=== PATIENT | female | born 1990 ===

== ENCOUNTER 2018-10-27 07:58 | Inpatient (IN) | payer OTHER ==
[2018-10-27] MEDS ORDERED: Buffered Lidocaine 1% SYRIN* 1 ML/SYRINGE INTRADERM ONE (08:33)
[2018-10-27] MEDS ORDERED: Lactated Ringers 1000 ML Bag* 1,000 ML IV ONE (08:33)
[2018-10-27] MEDS ORDERED: Penicillin G Potassium IV* 2,500,000 UNITS in NS 0.9% 100 ML* 100 ML IVPB SCH (09:00)
[2018-10-27] MEDS ORDERED: Lactated Ringers 1000 ML Bag* 1,000 ML IV SCH (09:00)
[2018-10-27 09:04] LABS: ABS Basophils 0 10^3/ul (0-0.2); ABS Eosinophils 0.1 10^3/ul (0-0.6); ABS Lymphocytes 1.9 10^3/ul (1.0-4.8); ABS Monocytes 0.7 10^3/ul (0-0.8); ABS Neutrophils 7.5 10^3/ul (1.5-7.7); ABS Nucleated RBC 0 10^3/ul; Eosinophil % 0.7 %; Hematocrit 36 % (33-41); Hemoglobin 11.7 g/dL (12.0-16.0); Mean Corpuscular HGB Conc 33 g/dL (31-36); Mean Corpuscular Hemoglobin 25 pg (27-31); Mean Corpuscular Volume 75 fL (80-97); Mean Platelet Volume 10.4 fL (7.4-10.4); Nucleated Red Blood Cells % 0; Platelet Count 135 10^3/uL (150-450); Red Blood Count 4.79 10^6 /uL (3.70-4.87); Red Cell Distribution Width 15 % (10.5-15); White Blood Count 10.2 10^3/uL (3.5-10.8)
[2018-10-27] MEDS ORDERED: Penicillin G Potassium IV* 5,000,000 UNITS in NS 0.9% 100 ML* 100 ML IVPB ONE (09:15)
[2018-10-27] MEDS ORDERED: Misoprostol TAB* 100 MCG PO ONE ×3 (09:20→18:30)
--- NOTE | 2018-10-27 09:28 | HP ---
General Information - Reason for Visit induction of labor - General Information Maternal Age: 28 Grav: 1 Para: 0 SAB: 0 IEA: 0 Estimated Due Date: 10/31/18 Determined By: LMP Maternal Blood Type and Rh: A Positive - Results this Serology/RPR Result: Non-Reactive Rubella Result: Immune HBsAg Result: Negative HIV Result: Negative GBS Culture Result: Positive Past Medical History Delivery History: See Records Pertinent Past Medical History: See Records Pertinent Past Surgical History: See Records Pertinent Family History: See Records - Antepartal Records Antepartal Records: Reviewed, Complicated by: - marginal prevbia now low lying placenta Review of Systems Constitutional: Comfortable CV Complaint: No Respiratory: Shortness of Breath: No Gastrointestinal: No Nausea/Vomiting Genitourinary: No Dysuria, No Bleeding, No Leaking Fluid Musculoskeletal: No Complaint Neurological: No Headache Movement: Normal Exam Allergies/Adverse Reactions: Allergies No Known Allergies Allergy (Verified 10/27/18 08:49) T: 97.7 BP 131/94 P : 97 RR: 18 Lab Values - Entire Visit: Laboratory Tests 10/27/18 10/27/18 08:40 08:40 WBC 10.2 RBC 4.79 Hgb 11.7 L Hct 36 MCV 75 L MCH 25 L MCHC 33 RDW 15 Plt Count 135 L MPV 10.4 Neut % (Auto) 73.6 Lymph % (Auto) 19.0 [place] % (Auto) 6.4 Eos % (Auto) 0.7 Baso % (Auto) 0.3 Absolute Neuts (auto) 7.5 Absolute Lymphs (auto) 1.9 Absolute Monos (auto) 0.7 Absolute Eos (auto) 0.1 Absolute Basos (auto) 0 Absolute Nucleated RBC 0 Nucleated RBC % 0 Blood Type A Positive - Measurements Height: 5 ft 3 in Weight: 188 lb 11.451 oz Weight in lbs: 188.091307 Body Mass Index (BMI): 33.4 Pre- Weight: 160 lb 14.999 oz Weight Gained This : 27.778 lbs and 0.004 ozs - Exam Breast: Breast Exam Deferred CVA: No CVA Tenderness Extremities: No Edema Heart: Normal Rhythm/Heart Sounds HEENT: No Significant Findings Lungs: Clear Bilaterally Rectal: Rectal Exam Deferred Reflexes: DTR 2+ Thyroid: No Thyromegaly - Abdominal Exam Abdomen Exam: Non-Tender - Ultrasound/Biophysical Profile Ultrasound Status: Not Done Targeted Exam Findings Cervical Exam: Closed Effacement: Thick Station: High Presenting Part: Vertex Membrane Status: Intact EFM Findings - External Monitor Findings Baseline Heart Rate: 140 External Monitor Findings: Accelerations Present, No Pattern of Variable or Late Decelerations, Variability Moderate Contractions: None Assessment/Plan - Assessment Pt 28 yo G1 at 39 weeks with low lying placenta less than 1 cm from OS. Pt desires a trial of labor - Obstetrical Risk Factors Obstetrical Risk Factors: GBS Positive - Plan Plan: Admit - Anticipate Vaginal Delivery - Pt is aware of possible risk of bleeding given low lyig placenta and need for emergent delivery. Pt accepts this risk and deisires to have a trial of labor for vaginal delivery. Will begin cervical ripening with oral cytotec.
[2018-10-27] MEDS ORDERED: Dinoprostone* 10 MG VAG.SUPP VAGINAL ONE (22:45)
[2018-10-28] MEDS ORDERED: ceFOXitin 2 GM IVPREMIX* 2 GM/50 ML BAG IVPB ONE (15:00)
[2018-10-28] MEDS ORDERED: ceFOXitin 2 GM IVPREMIX* 2 GM/50 ML BAG ONE (15:07)
[2018-10-28] MEDS ORDERED: Sodium Citrate/Citric Acid* 15 ML UDC ONE (15:07)
[2018-10-28] MEDS ORDERED: Famotidine IV* 10 MG/ML 2 ML (20 mg) ONE (15:08)
--- NOTE | 2018-10-28 15:15 | PN ---
Progress Note - Progress Note Date of Service: 10/28/18 Note: called for pt with cervidil for bleeding . approximately 200 cc blood and clot seen ve vertex still high cervix 2 cm. fhr 130 with moderate variabilty and accelerations d/w pt and delivery. Discussed significant risk of serious hemorrhage with complications given the current bleeding if we continue to induce or await natural labor. risks of discussed including but not limited to bleeding and transfusion/ injury to bowel bladder or uterus/ dvt/ infection and need for prophylactic antibiotics. questions answered. Jomar Ortiz MD
[2018-10-28] MEDS ORDERED: Dexamethasone IV* 4 MG/ML 1 ML (4 MG) ONE (15:17)
[2018-10-28] MEDS ORDERED: Morphine PF AMP (0.5MG/ML)* 5 MG/10 ML AMP ONE (15:17)
[2018-10-28] MEDS ORDERED: Ondansetron INJ* 2 MG/ML VIAL ONE (15:17)
[2018-10-28] MEDS ORDERED: OXYTOCIN* 10 UNITS/ML 1 ML VIAL ONE (15:17)
[2018-10-28] MEDS ORDERED: Phenylephrine 40 MCG/ML SYRINGE ONE (15:18)
[2018-10-28] MEDS ORDERED: HYDROmorphone INJ1* 1 MG/ML SYRINGE IV PRN (16:03)
[2018-10-28] MEDS ORDERED: Ondansetron INJ* 2 MG/ML VIAL IV PRN (16:03)
[2018-10-28] MEDS ORDERED: oxyCODONE/Acetamin 5/325 MG* TAB PO PRN ×2 (16:03)
[2018-10-28] MEDS ORDERED: Naloxone* 0.4 MG/ML 1 ML VIAL IV PRN ×2 (16:03)
[2018-10-28] MEDS ORDERED: Nalbuphine* 10 MG/ML 1 ML VIAL IV PRN (16:03)
[2018-10-28] MEDS ORDERED: fentaNYL* 50 MCG/ML 2 ML VIAL (100 MCG VIAL) IV PRN (16:03)
[2018-10-28] MEDS ORDERED: DiMENhydriNATE IV* 50 MG/ML VIAL IV PUSH PRN (16:03)
[2018-10-28] MEDS ORDERED: Tranexamic Acid 1,000 MG/10 ML 1,000 MG in NS 0.9% 50 ML* 50 ML IV ONE (16:31)
[2018-10-28] MEDS ORDERED: Acetaminophen TAB* 325 MG PO PRN (16:32)
[2018-10-28] MEDS ORDERED: Glycerin ADULT SUPP PR PRN (16:32)
[2018-10-28] MEDS ORDERED: Dibucaine 1% 28.35 GM TUBE PR PRN (16:32)
[2018-10-28] MEDS ORDERED: Witch Hazel PAD* JAR TOPICAL PRN (16:32)
[2018-10-28] MEDS ORDERED: Oxytocin in LR* 20 UNITS/1,000 ML BAG IVPB ONE (16:38)
[2018-10-28] MEDS ORDERED: Lactated Ringers 1000 ML Bag* 1,000 ML IV SCH (17:00)
[2018-10-28] MEDS ORDERED: Oxytocin in LR* 20 UNITS/1,000 ML BAG IVPB SCH (17:00)
[2018-10-28] MEDS ORDERED: Tranexamic Acid 1,000 MG in NS 0.9% 50 ML IV ONE (17:00)
[2018-10-28] MEDS ORDERED: Misoprostol TAB* 200 MCG PR ONE (17:03)
[2018-10-28] MEDS: Simethicone TAB* 80 MG TAB.CHEW PO SCH (21:53)
[2018-10-28] MEDS: Docusate CAP* 100 MG PO SCH (21:53)
--- NOTE | 2018-10-28 21:56 | PTEDU ---
Patient Name: HILTON WELLS JESSICAANGELLA VALDEZMIGDALIA selected video: Follow Me Mum: [employer] [facility] [employer] to view on 2018 at 9:55:28 PM from [id number]
[2018-10-28] MEDS: Oxytocin 20 UNITS in LR* ** ENTER RATE IVPB SCH (22:11)
--- NOTE | 2018-10-29 00:22 | OP ---
OPERATIVE REPORT: DATE OF OPERATION: 10/28/18 - [id number] DATE OF : 89 SURGEON: Pablo Ortiz M.D. HEAT TREATING OPERATOR: Yaneth Cha CNM ANESTHESIOLOGIST: Juice Orellana MD ANESTHESIA: Spinal. PRE-OP DIAGNOSES: Low lying placenta and maternal hemorrhage. POST-OP DIAGNOSIS: Low lying placenta and maternal hemorrhage plus lower uterine segment bleeding and endometriosis. OPERATIVE PROCEDURE: Low transverse section. COMPLICATIONS: Include bleeding lower uterine segment. FINDINGS: This is a 28-year-old, 1, para 0, with a low lying placenta less than 1 cm away from the cervical os, who was brought in at 39 weeks for induction of labor with having been given informed consent regarding the high risk of needing a and labor because of hemorrhage. She was given Cytotec and then Cervidil and she got in to labor, began to have heavy bleeding. She passed approximately 200 cc in the labor bed and at that point, the decision was made to proceed with . At the time of , she had a viable male, Apgars 8 and 9. The weight was 7 pounds 8 ounces. She had a lower uterine segment bleeding from where the placenta was attached, which was suture ligated and her back side of her uterus contained evidence of significant endometriosis along with somewhat involuted endometrioma on the right ovary and noted scarring and inflammatory decidual process. DESCRIPTION OF PROCEDURE: The patient identified, procedure identified as a low - transverse section. The patient was taken to the operating room, prepped and draped in the usual fashion under spinal anesthesia. A Pfannenstiel incision made in the abdomen and carried down through fat, fascia, and peritoneum. A transverse incision was made in the lower uterine segment and extended laterally using blunt dissection. The above was delivered through the incision with ease. The cord was doubly clamped and cut. The infant was handed to the awaiting manager mining. Cord blood was obtained. Placenta delivered spontaneously. The uterus was wiped out with a wet lap sponge. The uterine cavity was inspected and found to be bleeding from a raw area along the lower uterine segment on the back wall. This was suture ligated using 0 Polysorb [id number] sutures until hemostasis was improved and 2 [id number] sutures were placed. There was still some bleeding, but hemorrhage seemed fairly well controlled and the lower uterine segment was closed using 0 Polysorb in a running fashion. Second layer was used to imbricate the first layer. Good hemostasis was verified. Copious irrigation was utilized and suctioned out. The uterus was placed back in the abdominal cavity. The back side of the uterus had been inspected to make sure there was no stitches coming through or any bleeding to the back side of the uterus. Again, the intraperitoneal space was found to be hemostatic and uterine tone seemed appropriate and peritoneum was then closed using 3-0 Polysorb in a running fashion. Hemostasis achieved in the subrectus layers. The fascia was closed using 0 Polysorb in a running fashion. Hemostasis was achieved in the subcu. The skin was closed with 4-0 Monocryl in a subcuticular fashion. Mastisol and Steri-Strips were applied, and all sponge and instrument counts were correct. The patient returned to the recovery room in stable condition. [id number]/CPS #: [id number] MTDD
[2018-10-29] MEDS: Ibuprofen TAB* 600 MG PO SCH ×2 (00:47→05:10)
[2018-10-29] MEDS ORDERED: oxyCODONE/Acetamin 5/325 MG* TAB PO PRN (07:30)
[2018-10-29] MEDS: Oxytocin 20 UNITS in LR* ** ENTER RATE IVPB SCH (08:24)
[2018-10-29] MEDS: Simethicone TAB* 80 MG TAB.CHEW PO SCH ×5 (08:36→21:40)
[2018-10-29] MEDS: oxyCODONE/Acetamin 5/325 MG* TAB PO PRN ×2 (08:36→19:31)
[2018-10-29] MEDS: Docusate CAP* 100 MG PO SCH ×3 (08:36→21:40)
[2018-10-29 09:46] LABS: ABS Basophils 0.1 10^3/ul (0-0.2); ABS Eosinophils 0 10^3/ul (0-0.6); ABS Lymphocytes 1.6 10^3/ul (1.0-4.8); ABS Monocytes 0.9 10^3/ul (0-0.8); ABS Neutrophils 10.7 10^3/ul (1.5-7.7); ABS Nucleated RBC 0 10^3/ul; Eosinophil % 0.2 %; Hematocrit 31 % (33-41); Lymphocyte % 12.1 %; Mean Corpuscular HGB Conc 33 g/dL (31-36); Mean Corpuscular Hemoglobin 24 pg (27-31); Mean Corpuscular Volume 75 fL (80-97); Mean Platelet Volume 10.3 fL (7.4-10.4); Nucleated Red Blood Cells % 0; Platelet Count 129 10^3/uL (150-450); Red Blood Count 4.09 10^6 /uL (3.70-4.87); Red Cell Distribution Width 15 % (10.5-15); White Blood Count 13.3 10^3/uL (3.5-10.8)
[2018-10-29] MEDS: Ibuprofen TAB* 600 MG PO PRN ×2 (12:56→19:32)
[2018-10-29] MEDS: Ferrous Gluconate TAB* 324 MG TAB PO SCH ×2 (13:20→19:59)
[2018-10-29] MEDS ORDERED: Zolpidem TAB* 5 MG PO PRN (21:00)
[2018-10-30] MEDS: oxyCODONE/Acetamin 5/325 MG* TAB PO PRN ×2 (00:19→09:04)
[2018-10-30] MEDS: Ibuprofen TAB* 600 MG PO PRN ×3 (04:15→20:12)
[2018-10-30 07:02] LABS: Hematocrit 28 % (33-41); Hemoglobin 9.1 g/dL (12.0-16.0); Mean Corpuscular HGB Conc 33 g/dL (31-36); Mean Corpuscular Hemoglobin 25 pg (27-31); Mean Corpuscular Volume 75 fL (80-97); Mean Platelet Volume 11.5 fL (7.4-10.4); Platelet Count 118 10^3/uL (150-450); Red Blood Count 3.72 10^6 /uL (3.70-4.87); Red Cell Distribution Width 15 % (10.5-15); White Blood Count 8.7 10^3/uL (3.5-10.8)
[2018-10-30] MEDS: Simethicone TAB* 80 MG TAB.CHEW PO SCH ×4 (09:03→20:12)
[2018-10-30] MEDS: Ferrous Gluconate TAB* 324 MG TAB PO SCH ×2 (09:04→20:12)
[2018-10-30] MEDS: Docusate CAP* 100 MG PO SCH ×3 (09:05→20:12)
[2018-10-30 20:29] VITALS: BP 134/74
[2018-10-31] MEDS: Simethicone TAB* 80 MG TAB.CHEW PO SCH (09:50)
[2018-10-31] MEDS: Docusate CAP* 100 MG PO SCH (09:50)
[2018-10-31] MEDS: Ferrous Gluconate TAB* 324 MG TAB PO SCH (09:50)
[2018-10-31] MEDS: Ibuprofen TAB* 600 MG PO PRN (09:50)
== END 2018-10-31 13:27 | disposition home or self-care (01) | DRG 540 ==
LOC: MCHOBOUT 07:58 → MCHOB 09:17
PROVIDERS: ADMIT Obstetrics & Gynecology; ATTEND Obstetrics & Gynecology
PROC: 3E033VJ Introduction of Other Hormone into Peripheral Vein, Percutaneous Approach (ICD-10-PCS; 2018-10-28)
PROC: 3E0P7VZ Introduction of Hormone into Female Reproductive, Via Natural or Artificial Opening (ICD-10-PCS; 2018-10-28)
PROC: 10907ZC Drainage of Amniotic Fluid, Therapeutic from Products of Conception, Via Natural or Artificial Opening (ICD-10-PCS; 2018-10-28)
PROC: 0W3J0ZZ Control Bleeding in Pelvic Cavity, Open Approach (ICD-10-PCS; 2018-10-28)
PROC: 10D00Z1 Extraction of Products of Conception, Low, Open Approach (ICD-10-PCS; principal; 2018-10-28 15:20)
DX: O44.53 Low lying placenta with hemorrhage, third trimester (principal); O99.824 Streptococcus B carrier state complicating childbirth; O90.81 Anemia of the puerperium; D64.9 Anemia, unspecified; Z3A.39 39 weeks gestation of pregnancy; Z37.0 Single live birth
CPT/HCPCS: 36415; 85025; 85027; 86850; 86900; 86901; 86922; 88307; A9270-GY; J0694; J1100; J2405; J2540; J2590; S0191

== ENCOUNTER 2023-03-03 07:09 | Inpatient (IN) ==
[~2023-03-03 07:09] MED LIST: Buffered Lidocaine 1% SYRIN 1 ml INTRADERM ONE; Lactated Ringers 1000 ml BAG 1,000 ML IV ONE; Lidocaine 1% VIAL 10 MG/ML 30 ML VIAL INJ PRN; ceFOXitin 2 GM IVPREMIX 2 GM/50 ML BAG IVPB ONE
[2023-03-03] MEDS ORDERED: fentaNYL 100 mcg/2 ml 50 MCG/ML VIAL ONE (07:17)
[2023-03-03] MEDS ORDERED: Oxytocin 10 UNITS/ML 1 ML VIAL ONE (07:17)
[2023-03-03] MEDS ORDERED: Morphine PF AMP (0.5MG/ML) 5 MG/10 ML AMP ONE (07:17)
[2023-03-03] MEDS ORDERED: Ondansetron 4 mg VIAL 2 MG/ML 2 ml VIAL ONE (07:17)
[2023-03-03] MEDS ORDERED: Lactated Ringers 1000 ml BAG 1,000 ML IV SCH ×2 (08:00→11:00)
[2023-03-03 08:04] LABS: ABS Eosinophils 0.1 10^3/uL (0.0-0.5); ABS Lymphocytes 1.9 10^3/uL (1.0-4.8); ABS Monocytes 0.6 10^3/uL (0.0-0.9); ABS Neutrophils 7.6 10^3/uL (1.5-7.6); ABS Nucleated RBC 0.01 10^3/ul; Eosinophil % 0.7 %; Hematocrit 36.5 % (35-45); Hemoglobin 12.2 g/dL (11.5-14.3); Lymphocyte % 18.5 %; Mean Corpuscular Hemoglobin 25.2 pg (27-33); Mean Corpuscular Hgb Conc 33.4 g/dL (31-36); Mean Corpuscular Volume 75.4 fL (80-97); Nucleated Red Blood Cells % 0.1 /100 WBC (0.0-0.4); Platelet Count 144 10^3/uL (150-450); Red Blood Count 4.84 10^6/uL (3.63-4.92); Red Cell Distribution Width 15.2 % (12-17); White Blood Count 10.2 10^3/uL (3.8-11.8)
[2023-03-03] MEDS ORDERED: Metoclopramide 5 MG/ML VIAL (10 mg) IV PRN (08:34)
[2023-03-03] MEDS ORDERED: Naloxone 0.4 mg VIAL 0.4 mg/ml 1 ml VIAL IV PUSH PRN (08:34)
[2023-03-03] MEDS ORDERED: Acetaminophen IV 1 GM/100ML 1,000 MG/100 ML BAG IV PRN (08:34)
[2023-03-03] MEDS ORDERED: Ondansetron 4 mg VIAL 2 MG/ML 2 ml VIAL IV PRN (08:34)
[2023-03-03] MEDS ORDERED: Acetaminophen IV 1 GM/100ML 1,000 MG/100 ML BAG IV ONE (08:37)
[2023-03-03] MEDS ORDERED: Sodium Citrate/Citric Acid LIQ 15 ML UDC ONE (08:37)
[2023-03-03] MEDS ORDERED: Phenylephrine 40 mcg/mL 10mL (400mcg) SYRINGE ONE (09:20)
[2023-03-03] MEDS ORDERED: Phenylephrine IV 10 MG/ML 1 ml VIAL ONE (09:27)
[2023-03-03 09:57] LABS: Urine Appearance Clear; Urine Bilirubin Negative (Negative); Urine Blood Negative (Negative); Urine Color Yellow; Urine Glucose Negative (Negative); Urine Ketones Negative (Negative); Urine Nitrite Negative (Negative); Urine Protein Negative (Negative); Urine Specific Gravity 1.011 (1.002-1.030); Urine Urobilinogen Negative (Negative)
[2023-03-03 10:18] LABS: Urine Benzodiazepine Screen None Detected (None Detect); Urine Cannabinoids Screen None Detected (None Detect); Urine Opiates Screen None Detected (None Detect)
[2023-03-03] MEDS ORDERED: Glycerin ADULT 2.4 gm SUPP PR PRN (10:51)
[2023-03-03] MEDS ORDERED: Witch Hazel PAD JAR TOPICAL PRN (10:51)
[2023-03-03] MEDS ORDERED: Dibucaine 1% OINT 28.35 GM TUBE PR PRN (10:51)
[2023-03-03] MEDS: Oxytocin in LR 20,000 MILLI.UNIT/1,000 ML BAG IV SCH ×2 (13:51→13:52)
[2023-03-04 06:35] LABS: ABS Eosinophils 0.1 10^3/uL (0.0-0.5); ABS Lymphocytes 1.2 10^3/uL (1.0-4.8); ABS Monocytes 0.4 10^3/uL (0.0-0.9); ABS Neutrophils 7.3 10^3/uL (1.5-7.6); Eosinophil % 0.7 %; Hematocrit 28.1 % (35-45); Hemoglobin 9.5 g/dL (11.5-14.3); Lymphocyte % 13.8 %; Mean Corpuscular Hemoglobin 25.3 pg (27-33); Mean Corpuscular Hgb Conc 33.9 g/dL (31-36); Mean Corpuscular Volume 74.8 fL (80-97); Mean Platelet Volume 9.8 fL (7.5-11.2); Nucleated Red Blood Cells % 0.1 /100 WBC (0.0-0.4); Platelet Count 117 10^3/uL (150-450); Red Blood Count 3.76 10^6/uL (3.63-4.92); Red Cell Distribution Width 15.3 % (12-17)
[2023-03-04] MEDS: Mupirocin 2% OINT TUBE TOPICAL SCH ×2 (11:52→20:37)
[2023-03-05 10:25] VITALS: BP 137/72
[2023-03-05] MEDS: Mupirocin 2% OINT TUBE TOPICAL SCH (15:07)
== END 2023-03-05 16:41 | disposition home or self-care (01) | DRG 540 ==
LOC: MCHOB 07:09
PROVIDERS: ADMIT Obstetrics & Gynecology; ATTEND Obstetrics & Gynecology